=== PATIENT | female | born 1950 | race Caucasian/White ===

== ENCOUNTER → 2017-01-27 | Outpatient (CLI) | payer OTHER | LOC: FIMAGING 16:19 | DX: Z12.31 Encounter for screening mammogram for malignant neoplasm of breast (principal) | CPT/HCPCS: G0202 ==

== ENCOUNTER → 2017-10-08 | Outpatient (CLI) | payer OTHER | LOC: FIMAGING 09:27 | PROVIDERS: ATTEND Internal Medicine Geriatric Medicine | DX: Z13.820 Encounter for screening for osteoporosis (principal); M85.89 Other specified disorders of bone density and structure, multiple sites; Z78.0 Asymptomatic menopausal state ==

== ENCOUNTER 2018-01-21 14:53 | Emergency (ER) | payer OTHER, MEDICARE ==
[2018-01-21 15:05] VITALS: RESP 18
--- NOTE | 2018-01-21 15:21 | EDPHY ---
H & P Stated Complaint: Sent for eval +PNA on CXR;URI sxs w/prod cough since early January Time Seen by Provider: 01/21/18 15:17 HPI/ROS: CHIEF COMPLAINT: [ ] HISTORY OF PRESENT ILLNESS: [Need 4: Location, Duration, Severity, Quality, Context, Timing Modifying Factors, Associated S&S] REVIEW OF SYSTEMS: A comprehensive 10 point review of systems is otherwise negative aside from elements mentioned in the history of present illness. - Personal History Current Tetanus Diphtheria and Acellular Pertussis (TDAP): Yes Tetanus Vaccine Date: 2009 - Medical/Surgical History Hx Asthma: No Hx Chronic Respiratory Disease: No Hx Diabetes: No Hx Cardiac Disease: No Hx Renal Disease: No Hx Cirrhosis: No Hx Alcoholism: No Hx HIV/AIDS: No Hx Splenectomy or Spleen Trauma: No Other PMH: hypoThyroid; HTN, SVT at times, diverticulosis with diverticulitis flareups. Tonsilectomy. Hernia repair - Social History Smoking Status: Former smoker - Physical Exam Exam: General Appearance: [Alert, no distress] Eyes: [Pupils equal and round no pallor or injection] ENT, Mouth: [Mucous membranes moist] Respiratory: [There are no retractions, lungs are clear to auscultation] Cardiovascular: [Regular rate and rhythm] Gastrointestinal: [Abdomen is soft and nontender, no masses, bowel sounds normal] Neurological: [A&O, normal motor function, normal sensory exam, normal cranial nerves] Skin: [Warm and dry, no rashes] Musculoskeletal: [Neck is supple nontender] Extremities: [symmetrical, full range of motion] Psychiatric: [Patient is oriented X 3, there is no agitation] Constitutional: Initial Vital Signs Temperature (C) 36.6 C 01/21/18 15:03 Heart Rate 79 01/21/18 15:03 Respiratory Rate 18 01/21/18 15:03 Blood Pressure 133/90 H 01/21/18 15:03 O2 Sat (%) 98 01/21/18 15:03 O2 Delivery Mode Room Air Allergies/Adverse Reactions: ciprofloxacin Allergy (Verified 01/21/18 15:00) Swelling/neck,face,throat Sulfa (Sulfonamide Antibiotics) Allergy (Verified 01/21/18 15:00) Itching Home Medications: Medication Instructions Recorded Levothyroxine [Synthroid 75 mcg 75 mcg PO DAILY06 02/09/16 (*)] Losartan Potassium [Cozaar] 100 mg PO DAILY 02/09/16 Zolpidem Tartrate [Ambien 5MG (*)] 2.5 mg PO HS 02/09/16 rOPINIRole HCL [Requip 0.25mg (RX)] 0.125 mg PO HS 02/09/16 Doxycycline Hyclate [Vibramycin 100 mg PO 01/21/18 100 MG (*)] Spironolactone [Aldactone 25 MG 25 mg PO DAILY 01/21/18 (*)] Departure - Departure Referrals: Paula Kunz MD [Primary Care Provider] - As per Instructions
[2018-01-21] MEDS ORDERED: NS 1,800 ML IV ONE (15:22)
--- NOTE | 2018-01-21 15:31 | EDPHY ---
H & P Stated Complaint: Sent for eval +PNA on CXR;URI sxs w/prod cough since early January Time Seen by Provider: 01/21/18 15:17 HPI/ROS: CHIEF COMPLAINT: Pneumonia HISTORY OF PRESENT ILLNESS: The patient is a 67-year-old female who is sent in by her primary for pneumonia and a fever of 38.2. She was seen on the and diagnosed with a upper respiratory infection and started on azithromycin. This gave her palpitations and she stopped after 3 days. She does have a history of SVT post ablation. She has not had any problem since the ablation. She is not on blood thinners. She then was placed on amoxicillin and took this for 5 days. She returned to the office today stating that she was not feeling any better. X-ray was performed today that showed a lingular infiltrate. She was started on doxycycline and codeine and given Tylenol. Here she is afebrile and saturating 98% on room air. She also has a 1.1 cm nodule in right middle lobe that she knew about and states that she has had annual CTs to evaluate this and it has been unchanged. She is a former smoker. She is not however had a CT in the last several years. She denies chest pain. REVIEW OF SYSTEMS: Constitutional: See HPI EENTM: See HPI Respiratory: See HPI Cardiac: denies: chest pain, irregular heart rate, lightheadedness, palpitations Gastrointestinal/Abdominal: denies: abdominal pain, diarrhea, nausea, vomiting, blood streaked stools Genitourinary: denies: dysuria, frequency, hematuria, pain Musculoskeletal: denies: joint pain, muscle pain Skin: denies: lesions, rash, jaundice, bruising Neurological: denies: headache, numbness, paresthesia, tingling, dizziness, weakness Hematologic/Lymphatic: denies: blood clots, easy bleeding, easy bruising Immunologic/allergic: denies: HIV/AIDS, transplant EXAM: GENERAL: Well-appearing, well-nourished and in no acute distress. HEAD: Atraumatic, normocephalic. EYES: Pupils equal round and reactive to light, extraocular movements intact, sclera anicteric, conjunctiva are normal. ENT: TMs normal, nares patent, oropharynx clear without exudates. Moist mucous membranes. NECK: Normal range of motion, supple without lymphadenopathy or JVD. LUNGS: Breath sounds clear to auscultation bilaterally and equal. No wheezes rales or rhonchi. HEART: Regular rate and rhythm without murmurs, rubs or gallops. ABDOMEN: Soft, nontender, normoactive bowel sounds. No guarding, no rebound. No masses appreciated. BACK: No CVA tenderness, no spinal tenderness, step-offs or deformities EXTREMITIES: Normal range of motion, no pitting or edema. No clubbing or cyanosis. NEUROLOGICAL: Cranial nerves II through XII grossly intact. Normal speech, normal gait. 5/5 strength, normal movement in all extremities, normal sensation PSYCH: Normal mood, normal affect. SKIN: Warm, dry, normal turgor, no visible rashes or lesions. Source: Patient Exam Limitations: No limitations - Personal History Current Tetanus Diphtheria and Acellular Pertussis (TDAP): Yes Tetanus Vaccine Date: 2009 - Medical/Surgical History Hx Asthma: No Hx Chronic Respiratory Disease: No Hx Diabetes: No Hx Cardiac Disease: No Hx Renal Disease: No Hx Cirrhosis: No Hx Alcoholism: No Hx HIV/AIDS: No Hx Splenectomy or Spleen Trauma: No Other PMH: hypoThyroid; HTN, SVT at times, diverticulosis with diverticulitis flareups. Tonsilectomy. Hernia repair - Family History Significant Family History: No pertinent family hx - Social History Smoking Status: Former smoker Alcohol Use: Sober Constitutional: Initial Vital Signs Temperature (C) 36.6 C 01/21/18 15:03 Heart Rate 79 01/21/18 15:03 Respiratory Rate 18 01/21/18 15:03 Blood Pressure 133/90 H 01/21/18 15:03 O2 Sat (%) 98 01/21/18 15:03 O2 Delivery Mode Room Air Allergies/Adverse Reactions: ciprofloxacin Allergy (Verified 01/21/18 15:00) Swelling/neck,face,throat Sulfa (Sulfonamide Antibiotics) Allergy (Verified 01/21/18 15:00) Itching Home Medications: Medication Instructions Recorded Levothyroxine [Synthroid 75 mcg 75 mcg PO DAILY06 02/09/16 (*)] Losartan Potassium [Cozaar] 100 mg PO DAILY 02/09/16 Zolpidem Tartrate [Ambien 5MG (*)] 2.5 mg PO HS 02/09/16 rOPINIRole HCL [Requip 0.25mg (RX)] 0.125 mg PO HS 02/09/16 Doxycycline Hyclate [Vibramycin 100 mg PO 01/21/18 100 MG (*)] Spironolactone [Aldactone 25 MG 25 mg PO DAILY 01/21/18 (*)] Medical Decision Making - Diagnostics Imaging Results: Imaging Impressions Chest X-Ray 01/21/18 15:26 Impression: 1. Chronic bronchitis/airways disease. 2. No definite focal pneumonia. 3. No definite pulmonary nodule. 4. Consider additional CT chest imaging when the patient's medical condition permits. Findings and recommendations discussed with Emergency Department physician, Steve Head M.D., at 1639 hours, on January 21, 2018. Final report concurs with initial preliminary interpretation. Imaging: Discussed imaging studies w/ radiation safety officer Radiologist ED Course/Re-evaluation: Patient is well appearing. She is saturating 98% on room air. Her lung sounds are clear. She is afebrile after Tylenol. I will obtain lab work to rule out sepsis the. She has been partially treated. We will obtain blood cultures. She has a nodule that has been followed closely but is not recently had her annual CT scan. Unless there is another reason to perform a CT scan here in the ER we will defer that for outpatient follow-up. 4:45 p.m. the patient's x-ray is actually improved compared to this morning. The same radiologist reviewed and thinks that the previous x-ray had an unusual angle and a shadow. on this is one it appears more likely bronchitis the pneumonia. The patient is already taking doxycycline. She has been stable and saturating 98% on room air here. She has been afebrile. She is however hyponatremic at 126. She tells me that she has a history of family hyponatremia and has to take a sodium supplement at home but she has not taken it for the last week because she has been sick. She has already received about a L of normal saline here in the ER. She denies headache. No mental status changes. I will recheck her sodium. She would prefer to manage this from home which may be reasonable. She tells me her baseline sodium is 129. I turned off her normal saline infusion 5:30 p.m. the patient's sodium is much better. She does not have a headache or confusion or dizziness. She will resume taking her supplements. She also came back positive for flu B which we will treat with hydration and rest. She is too late to begin Tamiflu. I told her she could probably discontinue the doxycycline that was prescribed today but that was up to her. She is happy with this and declines further workup or testing at this time. Differential Diagnosis: Partial list of the Differential diagnosis considered include but were not limited to; influenza, pneumonia, sepsis, RSV, electrolyte abnormality and although unlikely based on the history and physical exam, I also considered acute coronary disease, PE. I discussed these differential diagnoses and the plan with the patient as well as the usual and expected course. The patient understands that the diagnosis is provisional and that in medicine we are not always correct and that further workup is often warranted. Usual and customary warnings were given. All of the patient's questions were answered. The patient was instructed to return to the emergency department should the symptoms at all worsen or return, otherwise to followup with the physician as we discussed. - Data Points Laboratory Results: Laboratory Results 01/21/18 15:50 01/21/18 16:43 01/21/18 01/21/18 01/21/18 16:43 15:50 15:50 WBC RBC Hgb Hct MCV MCH MCHC RDW Plt Count MPV Neut % (Auto) Lymph % (Auto) [place] % (Auto) Eos % (Auto) Baso % (Auto) Nucleat RBC Rel Count Absolute Neuts (auto) Absolute Lymphs (auto) Absolute Monos (auto) Absolute Eos (auto) Absolute Basos (auto) Absolute Nucleated RBC Immature Gran % Immature Gran # PT INR APTT VBG Lactic Acid 1.4 mmol/L mmol/L (0.7-2.1) Sodium 131 mEq/L L mEq/L (135-145) Potassium 3.3 mEq/L L mEq/L (3.5-5.2) Chloride 103 mEq/L mEq/L (97-110) Carbon Dioxide 18 mEq/l L mEq/l (22-31) Anion Gap 10 mEq/L mEq/L (8-16) BUN 8 mg/dL mg/dL (7-23) Creatinine 0.4 mg/dL L mg/dL (0.6-1.0) Estimated GFR > 60 Glucose 63 mg/dL L mg/dL (70-100) Calcium 7.2 mg/dL L D mg/dL (8.5-10.4) Total Bilirubin TSH 4.800 uIU/mL H uIU/mL (0.465-4.680) Free T4 1.60 ng/dL ng/dL (0.59-2.19) 01/21/18 01/21/18 01/21/18 15:50 15:50 15:50 WBC 3.26 10^3/uL L 10^3/uL (3.80-9.50) RBC 4.42 10^6/uL 10^6/uL (4.18-5.33) Hgb 13.6 g/dL g/dL (12.6-16.3) Hct 38.0 % % (38.0-47.0) MCV 86.0 fL fL (81.5-99.8) MCH 30.8 pg pg (27.9-34.1) MCHC 35.8 g/dL g/dL (32.4-36.7) RDW 12.3 % % (11.5-15.2) Plt Count 350 10^3/uL 10^3/uL (150-400) MPV 8.9 fL fL (8.7-11.7) Neut % (Auto) 46.0 % % (39.3-74.2) Lymph % (Auto) 38.7 % % (15.0-45.0) [place] % (Auto) 12.6 % % (4.5-13.0) Eos % (Auto) 1.5 % % (0.6-7.6) Baso % (Auto) 0.9 % % (0.3-1.7) Nucleat RBC Rel Count 0.0 % % (0.0-0.2) Absolute Neuts (auto) 1.50 10^3/uL L 10^3/uL (1.70-6.50) Absolute Lymphs (auto) 1.26 10^3/uL 10^3/uL (1.00-3.00) Absolute Monos (auto) 0.41 10^3/uL 10^3/uL (0.30-0.80) Absolute Eos (auto) 0.05 10^3/uL 10^3/uL (0.03-0.40) Absolute Basos (auto) 0.03 10^3/uL 10^3/uL (0.02-0.10) Absolute Nucleated RBC 0.00 10^3/uL 10^3/uL (0-0.01) Immature Gran % 0.3 % % (0.0-1.1) Immature Gran # 0.01 10^3/uL 10^3/uL (0.00-0.10) PT 12.6 SEC SEC (12.0-15.0) INR 0.92 (0.83-1.16) APTT 29.9 SEC SEC (23.0-38.0) VBG Lactic Acid Sodium 126 mEq/L L mEq/L (135-145) Potassium 3.7 mEq/L mEq/L (3.5-5.2) Chloride 95 mEq/L L mEq/L (97-110) Carbon Dioxide 22 mEq/l mEq/l (22-31) Anion Gap 9 mEq/L mEq/L (8-16) BUN 10 mg/dL mg/dL (7-23) Creatinine 0.6 mg/dL mg/dL (0.6-1.0) Estimated GFR > 60 Glucose 102 mg/dL H mg/dL (70-100) Calcium 8.7 mg/dL mg/dL (8.5-10.4) Total Bilirubin 0.4 mg/dL mg/dL (0.1-1.4) TSH Free T4 Microbiology Results: MICROBIOLOGY 01/21/18 15:50 Nasal, Sinus - Swab Respiratory Panel (PCR) - Final Influenza Virus Type B Medications Given: Discontinued Medications Sodium Chloride (Ns) 1,800 mls @ 3,600 mls/hr 30 ml/kg infuse over 30 min ( 1800 ml) IV EDNOW ONE PRN Reason: Protocol Stop: 01/21/18 15:51 Last Admin: 01/21/18 15:54 Dose: 1,800 mls Departure - Departure Disposition: Home, Routine, Self-Care Clinical Impression: Influenza B Acute bronchitis Qualifiers: Bronchitis organism: unspecified organism Qualified Code(s): J20.9 - Acute bronchitis, unspecified Fever Qualifiers: Fever type: unspecified Qualified Code(s): R50.9 - Fever, unspecified Condition: Good Instructions: Fever in Adults (ED), Influenza (ED), Acute Bronchitis (ED) Additional Instructions: Follow-up for CT scanning of the right lower lobe nodule and 1 month. Referrals: Paula Kunz MD [Primary Care Provider] - As per Instructions
[2018-01-21 16:10] LABS: PLATELET COUNT 350 10^3/uL (150-400)
[2018-01-21 16:19] LABS: INR 0.92 (0.83-1.16); PROTIME(PATIENT) 12.6 SEC (12.0-15.0)
[2018-01-21 17:57] VITALS: TEMP 98.4
[2018-01-21 18:00] VITALS: BP 130/82; PULSE 71; O2SAT 95
== END 2018-01-21 18:01 | disposition home or self-care (01) ==
DX: J10.1 Influenza due to other identified influenza virus with other respiratory manifestations (principal); J20.9 Acute bronchitis, unspecified; I10 Essential (primary) hypertension; E86.9 Volume depletion, unspecified; Z87.891 Personal history of nicotine dependence
CPT/HCPCS: 71046-PO